=== PATIENT | female | born 1945 | race Caucasian/White ===

== ENCOUNTER → 2017-07-14 | Outpatient (CLI) | payer MEDICARE ==
[~2017-07-14] MED LIST: ADVAIR 250/501 EA INH; ALLEGRA60 M1 PO; AQUASOL E PO; ASPIRIN81 M1 PO; ASTELIN NASAL S30 ML NAS; AUGMENTIN 875 M1 TAB PO; B12,B-12,B 12500 MCG PO; BACTRIM DS 8001 TAB PO; BIAXIN500 MG PO; CIPRO500 MG PO; CITALOPRAM20 MG PO; CLARITIN10 MG PO; COMBIVENT1 ARO IH; DEXILANT60 MG PO; DOXYCYCLINE100 M3 PO; EFFEXOR XR75 MG PO; FAMILY PHARMAC0.4 MG PO; FISH OIL; FISH OIL500 MG; FOLIC ACID; GLUCOSAMINE & C1 CA2 PO; LEVOFLOXACIN500 MG PO; LISINOPRIL10 MG PO; MEDROL DOSEPAK4 MG PO; METFORMIN500 MG PO; MOTRIN600 MG PO; MUCINEX600 MG PO; MULTIVITAMIN FO1 CAP PO; NICOTINE TRANSD1 TDM TD; PREDNICOT20 MG PO; PREDNISONE1 MG PO; PREDNISONE10 MG PO; PROAIR HFA8.5 GM INH; ROBITUSSIN AC 110 ML PO; SEPTRA DS 800 M1 TAB PO; VIT B 12; VIT D; VITAMIN D2000 IU PO; ZANTAC150 MG PO; [UNRECOGNIZED DRUG - OTHER] PO
== END | disposition home or self-care (01) ==
LOC: RESCLI 09:38
DX: S91.052A Open bite, left ankle, initial encounter (principal); E11.9 Type 2 diabetes mellitus without complications; K21.9 Gastro-esophageal reflux disease without esophagitis; I10 Essential (primary) hypertension; J44.9 Chronic obstructive pulmonary disease, unspecified; M19.90 Unspecified osteoarthritis, unspecified site; W55.01XA Bitten by cat, initial encounter; Y93.89 Activity, other specified; Y92.89 Other specified places as the place of occurrence of the external cause; Y99.8 Other external cause status

== ENCOUNTER → 2017-10-14 | Outpatient (CLI) | payer MEDICARE ==
[2017-10-14 09:42] LABS: BASO # 0.1 10*3/uL (0.0-0.1); BASO % 0.9 % (0.0-1.0); EOS # 0.2 10*3/uL (0.0-0.4); EOS % 4.1 % (1.0-4.0); HEMATOCRIT 52.8 % (37.0-47.0); HEMOGLOBIN 17.6 g/dl (12.0-16.0); LYMPH # 1.7 10*3/uL (1.3-4.4); LYMPH % 31.5 % (27.0-41.0); MEAN CELL VOLUME 101.9 fl (81.0-99.0); MEAN CORPUSCULAR HGB CONC 33.3 g/dl (33.0-37.0); MEAN PLATELET VOLUME 8.6 fl (9.6-12.3); MONO # 0.7 10*3/uL (0.1-1.0); MONO % 12.6 % (3.0-9.0); NEUT # 2.7 10*3/uL (2.3-7.9); NEUT % 50.7 % (47.0-73.0); PLATELET COUNT AUTOMATED 281 10*3/uL (130-400); RED BLOOD COUNT 5.18 10*6/uL (4.10-5.10); RED CELL DISTRI WIDTH 12.2 % (0-14.5); WHITE BLOOD COUNT 5.3 10*3/uL (4.8-10.8)
[2017-10-14 10:14] LABS: ALBUMIN 3.2 gm/dl (3.1-4.5); ALKALINE PHOSPHATASE 96 U/L (45-117); BILIRUBIN, DIRECT 0.2 mg/dL (0.0-0.2); BUN 7 mg/dl (7-24); CHLORIDE 104 mmol/L (98-107); CHOLESTEROL 179 mg/dL (<200); HDL CHOLESTEROL 60 mg/dl (40-60); LDL CHOLESTEROL 100 mg/dL (9-159); PHOSPHOROUS 3.9 mg/dL (2.5-4.9); POTASSIUM 4.4 mmol/L (3.5-5.1); SGOT/AST 16 IU/L (3-35); SGPT/ALT 20 U/L (12-78); SODIUM 140 mmol/L (136-145); TOTAL PROTEIN 6.7 gm/dL (6.4-8.2); TRIGLYCERIDES 93 mg/dl (<150); VLDL CHOLESTEROL 19 mg/dL (6-40)
== END | disposition home or self-care (01) ==
LOC: LAB 09:22
PROVIDERS: Internal Medicine
DX: E11.9 Type 2 diabetes mellitus without complications (principal); I10 Essential (primary) hypertension; D51.9 Vitamin B12 deficiency anemia, unspecified

== ENCOUNTER → 2017-12-31 | Outpatient (CLI) | payer MEDICARE ==
[~2017-12-31] MED LIST changes: +AUGMENTIN 875-875 MG PO; +NICODERM CQ1 EAC2 T; +Vitamin D PO
== END | disposition home or self-care (01) ==
LOC: US 12:05
DX: I65.23 Occlusion and stenosis of bilateral carotid arteries (principal)

== ENCOUNTER 2018-01-01 09:40 | Inpatient (IN) | payer MEDICARE ==
[~2018-01-01] VITALS: Ht 160 cm; Wt 63.6 kg
[~2018-01-01 09:40] MED LIST changes: -AUGMENTIN 875-875 MG PO; -NICODERM CQ1 EAC2 T; -Vitamin D PO
[2018-01-01 10:31] VITALS: BP 123/64
[2018-01-01 11:14] LABS: BASO # 0.1 10*3/uL (0.0-0.1); BASO % 0.6 % (0.0-1.0); EOS # 0.1 10*3/uL (0.0-0.4); EOS % 1.5 % (1.0-4.0); HEMATOCRIT 46.4 % (37.0-47.0); HEMOGLOBIN 15.8 g/dl (12.0-16.0); LYMPH # 1.6 10*3/uL (1.3-4.4); LYMPH % 17.5 % (27.0-41.0); MEAN CELL VOLUME 97.1 fl (81.0-99.0); MEAN CORPUSCULAR HGB 33.1 pg (27.0-31.0); MEAN CORPUSCULAR HGB CONC 34.1 g/dl (33.0-37.0); MEAN PLATELET VOLUME 8.8 fl (9.6-12.3); MONO # 0.8 10*3/uL (0.1-1.0); MONO % 9.2 % (3.0-9.0); NEUT # 6.3 10*3/uL (2.3-7.9); NEUT % 70.9 % (47.0-73.0); PLATELET COUNT AUTOMATED 297 10*3/uL (130-400); RED BLOOD COUNT 4.78 10*6/uL (4.10-5.10); RED CELL DISTRI WIDTH 14.6 % (0-14.5); WHITE BLOOD COUNT 8.9 10*3/uL (4.8-10.8)
[2018-01-01 11:30] LABS: ALBUMIN 3.3 gm/dl (3.1-4.5); ALKALINE PHOSPHATASE 114 U/L (45-117); BUN 8 mg/dl (7-24); CHLORIDE 104 mmol/L (98-107); CREATININE 0.78 mg/dL (0.55-1.02); POTASSIUM 4.1 mmol/L (3.5-5.1); SGOT/AST 15 IU/L (3-35); SGPT/ALT 17 U/L (12-78); SODIUM 139 mmol/L (136-145); TOTAL PROTEIN 6.8 gm/dL (6.4-8.2)
[2018-01-01 12:38] VITALS: BP 134/78
[2018-01-01 16:00] VITALS: BP 117/55
[2018-01-01 20:00] VITALS: BP 140/71
[2018-01-01 23:57] VITALS: BP 128/70
[2018-01-02 06:22] LABS: ACT PARTIAL THROMBO TIME 25.2 SECONDS (20.8-31.5)
[2018-01-02 06:25] LABS: ALBUMIN 2.8 gm/dl (3.1-4.5); BUN 5 mg/dl (7-24); CHLORIDE 105 mmol/L (98-107); CHOLESTEROL 115 mg/dL (<200); CREATININE 0.64 mg/dL (0.55-1.02); PHOSPHOROUS 3.1 mg/dL (2.5-4.9); SGOT/AST 12 IU/L (3-35); SGPT/ALT 14 U/L (12-78); SODIUM 142 mmol/L (136-145); TRIGLYCERIDES 42 mg/dl (<150); VLDL CHOLESTEROL 8 mg/dL (6-40)
[2018-01-02 06:28] LABS: BASO % 0.4 % (0.0-1.0); EOS # 0.3 10*3/uL (0.0-0.4); EOS % 3.6 % (1.0-4.0); HEMATOCRIT 45.3 % (37.0-47.0); HEMOGLOBIN 15.3 g/dl (12.0-16.0); LYMPH # 1.8 10*3/uL (1.3-4.4); LYMPH % 22.6 % (27.0-41.0); MEAN CORPUSCULAR HGB 33.8 pg (27.0-31.0); MEAN CORPUSCULAR HGB CONC 33.8 g/dl (33.0-37.0); MEAN PLATELET VOLUME 8.9 fl (9.6-12.3); MONO # 0.6 10*3/uL (0.1-1.0); MONO % 7.8 % (3.0-9.0); NEUT # 5.1 10*3/uL (2.3-7.9); NEUT % 65.3 % (47.0-73.0); PLATELET COUNT AUTOMATED 299 10*3/uL (130-400); RED BLOOD COUNT 4.53 10*6/uL (4.10-5.10); RED CELL DISTRI WIDTH 14.8 % (0-14.5); WHITE BLOOD COUNT 7.8 10*3/uL (4.8-10.8)
[2018-01-02 06:33] LABS: ALKALINE PHOSPHATASE 97 U/L (45-117); FREE T4 0.99 ng/dl (0.76-1.46); HDL CHOLESTEROL 72 mg/dl (40-60); LDL CHOLESTEROL 35 mg/dL (9-159)
[2018-01-02 07:52] LABS: VITAMIN D, 25-HYDROXY 8.7 ng/mL (30-100)
[2018-01-02 08:00] VITALS: BP 98/40
[2018-01-02 12:00] VITALS: BP 135/87
[2018-01-02 16:00] VITALS: BP 145/63
[2018-01-02 20:00] VITALS: BP 124/64
[2018-01-02 23:57] VITALS: BP 118/65
[2018-01-03 08:00] VITALS: BP 136/76
[2018-01-03] MEDS ORDERED: Vitamin D PO (08:16)
[2018-01-03] MEDS ORDERED: AUGMENTIN 875-875 MG PO (09:26)
[2018-01-03] MEDS ORDERED: NICODERM CQ1 EAC2 T (09:26)
== END 2018-01-03 10:47 | disposition home or self-care (01) | DRG 603 ==
LOC: ED 09:40 → EDHOLD 11:11 → 4E 11:26
PROVIDERS: Emergency Medicine; Internal Medicine
DX: L03.113 Cellulitis of right upper limb (principal); E11.628 Type 2 diabetes mellitus with other skin complications; J44.9 Chronic obstructive pulmonary disease, unspecified; E80.6 Other disorders of bilirubin metabolism; I10 Essential (primary) hypertension; F17.200 Nicotine dependence, unspecified, uncomplicated; Z96.649 Presence of unspecified artificial hip joint; E55.9 Vitamin D deficiency, unspecified; H91.93 Unspecified hearing loss, bilateral; Z78.9 Other specified health status; W55.01XA Bitten by cat, initial encounter; Z79.82 Long term (current) use of aspirin; Z71.6 Tobacco abuse counseling; Y93.89 Activity, other specified; Y92.098 Other place in other non-institutional residence as the place of occurrence of the external cause; Y99.8 Other external cause status; Z79.84 Long term (current) use of oral hypoglycemic drugs

== ENCOUNTER → 2018-01-05 | Outpatient (CLI) | payer MEDICARE ==
[~2018-01-05] MED LIST changes: +AUGMENTIN 875-875 MG PO; +NICODERM CQ1 EAC2 T; +Vitamin D PO
== END | disposition home or self-care (01) ==
LOC: RESCLI 09:09
DX: J44.9 Chronic obstructive pulmonary disease, unspecified (principal); R09.02 Hypoxemia; R06.02 Shortness of breath; E11.9 Type 2 diabetes mellitus without complications; I10 Essential (primary) hypertension; F33.9 Major depressive disorder, recurrent, unspecified; F17.200 Nicotine dependence, unspecified, uncomplicated; Z96.641 Presence of right artificial hip joint

== ENCOUNTER → 2018-01-29 | Outpatient (CLI) | payer MEDICARE ==
--- NOTE | ~2018-01-29 | PF ---
[place], [place] PULMONARY FUNCTION TEST NAME: DON PEREZ UNIT #: [id number] ROOM: DOCTOR: KESHA DOMINGUEZ MD,FLORENCIO BIRTHDATE: [birth year] DOS: 01/29/2018 TESTING ORDERED BY: Mckenzie Gann DO HISTORY: Recorded a 72-year-old female, height of 63 inches, weight of 139 pounds. The patient was known with past history of COPD and chronic respiratory failure. The patient was noted with active tobacco use, 2 packs of cigarettes per day for the past 53 years. The symptoms rather reported as a productive cough. SPIROMETRY: The FVC was recorded 2 liters as 70% predicted value, mildly decreased. The FEV1 were recorded 1.21 liters, 57% predicted value, moderate to severely decreased with 17% partial improvement noted post-bronchodilator. The ratio of FEV1/FVC postbronchodilator was noted as 65%. LUNG VOLUME: Thoracic gas volume 125%, residual volume 130%, total lung capacity 100%. RV/TLC ratio 131%, mildly increased. The lung volume was suggestive of mild air trapping. The patient's lung diffusion recorded 48% without correction of carbon monoxide hemoglobin value. The patient's abnormal airway resistance and passive conductance noted, partial improvement post-bronchodilator test. FINAL IMPRESSION: The test was suggestive of evidence of moderate COPD as well as bronchial asthma combination. FLORENCIO REBOLLEDO MD CM:PFREPORT:PULMONARY FUNCTION TEST 1251 0055 FLORENCIO DOMINGUEZ MD
== END | disposition home or self-care (01) ==
LOC: CP 10:31
DX: J44.9 Chronic obstructive pulmonary disease, unspecified (principal); Z99.81 Dependence on supplemental oxygen

== ENCOUNTER 2018-03-20 13:09 | Inpatient (IN) | payer MEDICARE ==
[~2018-03-20] VITALS: Ht 157.4 cm; Wt 58.8 kg
[2018-03-20 13:12] VITALS: BP 116/80
[2018-03-20 13:33] LABS: BASO % 0.5 % (0.0-1.0); EOS # 0.1 10*3/uL (0.0-0.4); EOS % 1.5 % (1.0-4.0); HEMATOCRIT 46.3 % (37.0-47.0); HEMOGLOBIN 15.3 g/dl (12.0-16.0); LYMPH # 1.1 10*3/uL (1.3-4.4); LYMPH % 15.4 % (27.0-41.0); MEAN CELL VOLUME 99.6 fl (81.0-99.0); MEAN CORPUSCULAR HGB 32.9 pg (27.0-31.0); MEAN PLATELET VOLUME 8.9 fl (9.6-12.3); MONO # 0.9 10*3/uL (0.1-1.0); MONO % 12.9 % (3.0-9.0); NEUT # 5.1 10*3/uL (2.3-7.9); NEUT % 69.3 % (47.0-73.0); PLATELET COUNT AUTOMATED 219 10*3/uL (130-400); RED BLOOD COUNT 4.65 10*6/uL (4.10-5.10); RED CELL DISTRI WIDTH 15.5 % (0-14.5); WHITE BLOOD COUNT 7.3 10*3/uL (4.8-10.8)
[2018-03-20 13:54] LABS: ALKALINE PHOSPHATASE 129 U/L (45-117); BUN 7 mg/dl (7-24); CHLORIDE 103 mmol/L (98-107); CREATININE 0.57 mg/dL (0.55-1.02); POTASSIUM 4.1 mmol/L (3.5-5.1); SGOT/AST 12 IU/L (3-35); SGPT/ALT 15 U/L (12-78); SODIUM 137 mmol/L (136-145); TOTAL PROTEIN 6.6 gm/dL (6.4-8.2)
[2018-03-20 13:56] LABS: TROPONIN I < 0.015 ng/ml (<0.045)
[2018-03-20 14:16] VITALS: BP 125/66
[2018-03-20 15:06] LABS: ACT PARTIAL THROMBO TIME 23.1 SECONDS (20.8-31.5)
[2018-03-20 16:00] VITALS: BP 122/53
[2018-03-20 20:00] VITALS: BP 118/53
[2018-03-21] VITALS: BP 109/85
[2018-03-21 06:54] LABS: BASO % 0.4 % (0.0-1.0); EOS # 0.2 10*3/uL (0.0-0.4); EOS % 2.6 % (1.0-4.0); HEMATOCRIT 42.9 % (37.0-47.0); HEMOGLOBIN 14.2 g/dl (12.0-16.0); LYMPH # 2.9 10*3/uL (1.3-4.4); MEAN CELL VOLUME 100.7 fl (81.0-99.0); MEAN CORPUSCULAR HGB 33.3 pg (27.0-31.0); MEAN CORPUSCULAR HGB CONC 33.1 g/dl (33.0-37.0); MEAN PLATELET VOLUME 9.2 fl (9.6-12.3); MONO # 1.2 10*3/uL (0.1-1.0); MONO % 14.3 % (3.0-9.0); NEUT # 4.1 10*3/uL (2.3-7.9); NEUT % 48.2 % (47.0-73.0); PLATELET COUNT AUTOMATED 210 10*3/uL (130-400); RED BLOOD COUNT 4.26 10*6/uL (4.10-5.10); RED CELL DISTRI WIDTH 15.4 % (0-14.5); WHITE BLOOD COUNT 8.6 10*3/uL (4.8-10.8)
[2018-03-21 07:08] LABS: BUN 9 mg/dl (7-24); CHLORIDE 104 mmol/L (98-107); CHOLESTEROL 83 mg/dL (<200); CREATININE 0.54 mg/dL (0.55-1.02); HDL CHOLESTEROL 40 mg/dl (40-60); LDL CHOLESTEROL 34 mg/dL (9-159); PHOSPHOROUS 3.3 mg/dL (2.5-4.9); POTASSIUM 3.6 mmol/L (3.5-5.1); SODIUM 141 mmol/L (136-145); TRIGLYCERIDES 47 mg/dl (<150); VLDL CHOLESTEROL 9 mg/dL (6-40)
[2018-03-21 07:16] LABS: FREE T4 1.15 ng/dl (0.76-1.46)
[2018-03-21 08:00] VITALS: BP 126/59
[2018-03-21 09:00] LABS: VITAMIN D, 25-HYDROXY 45.5 ng/mL (30-100)
[2018-03-21 12:00] VITALS: BP 100/52
[2018-03-21 16:00] VITALS: BP 102/49
[2018-03-21 20:00] VITALS: BP 96/46
[2018-03-22] VITALS: BP 101/64
[2018-03-22 06:46] LABS: BASO % 0.4 % (0.0-1.0); EOS # 0.3 10*3/uL (0.0-0.4); EOS % 3.9 % (1.0-4.0); HEMOGLOBIN 13.2 g/dl (12.0-16.0); LYMPH # 2.4 10*3/uL (1.3-4.4); LYMPH % 32.4 % (27.0-41.0); MEAN CELL VOLUME 100.8 fl (81.0-99.0); MEAN CORPUSCULAR HGB 33.2 pg (27.0-31.0); MEAN PLATELET VOLUME 9.3 fl (9.6-12.3); MONO # 1.1 10*3/uL (0.1-1.0); MONO % 14.1 % (3.0-9.0); NEUT # 3.7 10*3/uL (2.3-7.9); NEUT % 48.8 % (47.0-73.0); PLATELET COUNT AUTOMATED 230 10*3/uL (130-400); RED BLOOD COUNT 3.97 10*6/uL (4.10-5.10); RED CELL DISTRI WIDTH 15.6 % (0-14.5); WHITE BLOOD COUNT 7.5 10*3/uL (4.8-10.8)
[2018-03-22 06:49] LABS: ALBUMIN 2.4 gm/dl (3.1-4.5); BUN 14 mg/dl (7-24); CHLORIDE 102 mmol/L (98-107); CREATININE 0.61 mg/dL (0.55-1.02); POTASSIUM 3.6 mmol/L (3.5-5.1); SGOT/AST 10 IU/L (3-35); SGPT/ALT 12 U/L (12-78); SODIUM 139 mmol/L (136-145); TOTAL PROTEIN 5.8 gm/dL (6.4-8.2)
[2018-03-22 06:50] LABS: ALKALINE PHOSPHATASE 95 U/L (45-117)
[2018-03-22 08:00] VITALS: BP 108/62; BP 91/34
[2018-03-22 12:00] VITALS: BP 96/47
[2018-03-22 16:00] VITALS: BP 91/50
[2018-03-22 20:00] VITALS: BP 91/45
[2018-03-23] VITALS: BP 111/50
[2018-03-23 08:00] VITALS: BP 102/63
[2018-03-23] MEDS ORDERED: XARE15TA PO (10:35)
[2018-03-23] MEDS ORDERED: XARELTO20 M1 PO (10:35)
[2018-03-24] MEDS ORDERED: ASPIRIN81 M1 PO (09:17)
== END 2018-03-23 12:10 | disposition home or self-care (01) | DRG 299 ==
LOC: ED 13:09 → EDHOLD 14:58 → 4E 14:58
PROVIDERS: Internal Medicine; Student in an Organized Health Care Education/Training Program
DX: I82.431 Acute embolism and thrombosis of right popliteal vein (principal); I26.99 Other pulmonary embolism without acute cor pulmonale; E44.0 Moderate protein-calorie malnutrition; E11.8 Type 2 diabetes mellitus with unspecified complications; I82.441 Acute embolism and thrombosis of right tibial vein; J44.9 Chronic obstructive pulmonary disease, unspecified; R26.2 Difficulty in walking, not elsewhere classified; Z66 Do not resuscitate; Z51.5 Encounter for palliative care; F17.200 Nicotine dependence, unspecified, uncomplicated; I10 Essential (primary) hypertension; H91.90 Unspecified hearing loss, unspecified ear; Z96.641 Presence of right artificial hip joint; E55.9 Vitamin D deficiency, unspecified; Z79.01 Long term (current) use of anticoagulants; Z79.899 Other long term (current) drug therapy; Z99.81 Dependence on supplemental oxygen; Z79.84 Long term (current) use of oral hypoglycemic drugs; Z79.82 Long term (current) use of aspirin; Z72.89 Other problems related to lifestyle; Z68.23 Body mass index [BMI] 23.0-23.9, adult

== ENCOUNTER 2018-03-24 06:47 | Inpatient (IN) | payer MEDICARE ==
[~2018-03-24] VITALS: Ht 160 cm; Wt 60.5 kg
--- NOTE | ~2018-03-24 | CON ---
[place], [place] REPORT OF CONSULTATION NAME: DON PEREZ UNIT #: [id number] ROOM: 524 DOCTOR: FLORENCIO XIONG MD BIRTHDATE: [birth year] DOS: 03/25/2018 REASON FOR CONSULTATION: The consultation done for assessment of current acute hypoxic exacerbation with increased respiratory symptom. HISTORY OF PRESENT ILLNESS: This is a 72-year-old white female patient, who has been admitted to the hospital just recently in 03/2018. The patient was hospitalized on 03/20/2018 and discharged home on 03/23/2018. The patient was noted to have bilateral pulmonary embolism. The patient has deep venous thrombosis involving the right lower extremity. Discharged home on Xarelto for this patient to loading dose of 50 mg b.i.d. The patient has been taking the medication. She developed acute significant severe shortness of breath that occurred for this patient and came back to the hospital on 03/24/2018. The patient also noted symptoms of chest pain with that as well, which she was described in retrosternal area, radiating to the right shoulder. Shortness of breath was noted. She has been noted with mild cough and the patient had some wheezing as well. She has noted resolution of the chest pain at the present time. Denies symptoms of hemoptysis. Denies symptoms of nausea or vomiting. The patient came into the Emergency Room, she was noted with acute hypoxic respiratory failure, pulse ox saturation 80% recorded. REVIEW OF SYSTEMS: CONSTITUTIONAL: She does complain of some fatigue and tiredness. Denies symptoms of fever or chills. EYES: Denies any burning, redness, or tenderness. EARS, NOSE, THROAT SYMPTOMS: Denies sore throat, hoarseness, otalgia, or postnasal drainage. CARDIOVASCULAR: Denies angina pain, edema, and pain of the lower extremities. GASTROINTESTINAL SYMPTOMS: Denies dysphagia, nausea, vomiting, diarrhea, abdominal pain, hematemesis, melena, or hematochezia. GENITOURINARY SYMPTOMS: No dysuria, suprapubic pain, or hematuria. MUSCULOSKELETAL SYMPTOMS: No acute joint pain, redness, or tenderness. SKIN: Denies abnormal lesions or rashes. CENTRAL NERVOUS SYSTEM: No dizziness, headache, diplopia, or syncopal episodes. Remaining systems were reviewed, they were noted all negative. PAST MEDICAL HISTORY: 1. Known with history of chronic obstructive pulmonary disease. 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 3. Acute pulmonary embolism, which was diagnosed with the patient on 03/21/2018. The patient bilateral nonsaddle pulmonary emboli. The patient diagnosed on 03/20/2018. 4. Occlusive thrombus, lower extremity noted involving the right popliteal and tibial veins. 5. Hearing loss for the patient was known, which was chronic. The patient is able to do excellent job of lip reading. 6. History of type 2 diabetes mellitus. 7. Vitamin D deficiency. [place], [place] REPORT OF CONSULTATION NAME: DON PEREZ UNIT #: [id number] ROOM: 524 DOCTOR: KESHA DOMINGUEZ MD,FLORENCIO BIRTHDATE: [birth year] PAST SURGICAL HISTORY: Noted right total hip arthroplasty in the past. SOCIAL HISTORY: The patient stated that she is single, not , does not have any children. Tobacco use noted since early teens, 2 packs of cigarettes per day, which were later on decreased 1 pack of cigarettes per day, actively smoking cigarettes. FAMILY HISTORY: The patient was adopted. The history about parents was unknown. CURRENT MEDICATIONS: Administered were noted use of metformin, Protonix, nicotine replacement patches, Tylenol, DuoNeb, aspirin, vitamin D, Xarelto 15 mg b.i.d., citalopram and lisinopril. The patient is also using DuoNeb for the patient as q. 4 hours while awake. DRUG ALLERGIES HISTORY: Noted to no known drug allergies. PHYSICAL EXAMINATION: GENERAL: A 72-year-old female patient, who has been currently noted to be awake and alert for this patient, resting comfortably on the bed. The patient's height was recorded by the nursing staff on current admission. Height for the patient was noted as 5 feet 3 inches, weight of 133 pounds, BMI 23.6. VITAL SIGNS: Shows a normal temperature, respiratory rate 18-20, heart rate 65-73, blood pressure 139/73 to 113/74. Pulse oxygen saturation of the patient noted as 80% saturation on admission and currently on room air at rest was 92% saturation. HEENT: Examination shows head was atraumatic. Eyes nonicterus. NECK: Supple. CARDIOVASCULAR SYSTEM: S1, S2 is audible. LUNGS: The patient was noted without any wheezing or crackles. Breaths are noted mildly decreased bilaterally. ABDOMEN: Soft, nontender. Bowel sounds present. EXTREMITIES: The patient was noted without any acute edema, clubbing or cyanosis at this time. SKIN: No lesions or rashes. MUSCULOSKELETAL SYMPTOMS: Noted without any acute deformities. CENTRAL NERVOUS SYSTEM: Cranial nerves were noted 2-12 intact. No focal deficit. LABORATORY DATA: Labs on this patient, CMP yesterday in the Emergency Room, the patient noted normal BUN and creatinine. A total bilirubin of 1.4. PT/PTT yesterday noted as normal. CBC yesterday noted normal hemoglobin, hematocrit and platelet count. The chest x-ray of the patient that was done yesterday, 1 view was done for this patient was noted without any acute major pulmonary infiltration. CBC this morning essentially remains normal. CMP this morning noted normal BUN and creatinine. I have reviewed the CT of the chest of patient that was noted with evidence of a nonsaddle pulmonary embolism for the patient, which was involving the right upper lobe pulmonary arterial branches of the patient with the largest embolus. Small embolism for the patient noted in the left lower lobe pulmonary arterial branches as well. Right upper lobe area in the lingula of the patient noted with some increased interstitial marking. [place], [place] REPORT OF CONSULTATION NAME: DON PEREZ UNIT #: [id number] ROOM: 524 DOCTOR[facility] B[facility] [birth year] There was no definitive pulmonary nodules. There was no evidence of any lymphadenopathy. Echocardiogram results were also reviewed. The patient does not show any right-sided pulmonary hypertension. For this patient left ventricle ejection fraction noted as 70% that was normal. The right extremity ultrasound noted occlusive thrombus involving the right popliteal and posterior tibial veins. IMPRESSION: 1. The patient who has been currently admitted to the hospital noted acute respiratory failure resulting from recurrent pulmonary embolus. The patient on anticoagulation with Xarelto. 2. The patient with chronic obstructive pulmonary disease, longstanding tobacco use also noted. This was a clinical assessment. 3. Rule out hypercoagulability as well. Occlusive thrombus of the patient noted in the right tibial vein and the peroneal vein for this patient as well. There was no evidence of pulmonary hypertension at this time or acute right-sided heart dysfunction. The patient noted evidence of hypotension. 4. History of type 2 diabetes mellitus as well. PLAN OF MANAGEMENT: Ultrasound of the lower extremity will be repeated again for the patient to assess the progression of the thrombosis for this patient, which was noted. The ultrasound of the bilateral lower extremity was ordered for the patient, previously was ordered only ultrasound of the right lower extremity. The patient's Xarelto has been discontinued and she will be started on traditional treatment with the Lovenox for the patient 1 mg/kg body weight at 2200 hours once the effect of Xarelto on the patient will be finished. Strong recommendation for prevention for the blood clot for this patient with IVC filter. The patient to reduce the major clot burden. The patient progressing to the heart from the lower extremities. Interventional Radiology consultation and consultation from the buck swamper would be obtained. Titrate oxygen supplementation, maintain pulse ox 92% greater. Usual respiratory medication could be started for the long-term management of COPD and nicotine replacement patches will be ordered. Assessment, management and the recommendation, the patient's further medical management discussed with Medicare primary nurse practitioner, who is taking care of this patient today. FLORENCIO REBOLLEDO MD CM:CONSTR:REPORT OF CONSULTATION 1327 03/25/18 1075 interface
--- NOTE | ~2018-03-24 | PR ---
[place], [place] PROGRESS NOTE NAME: DON PEREZ UNIT #: [id number] ROOM: 524 DOCTOR: KESHA DOMINGUEZ MD,FLORENCIO BIRTHDATE: [birth year] DOS: 03/26/2018 SUBJECTIVE: The patient has been noted comfortable at this time, resting. She has ultrasound of the lower extremities, which shows increased propagation of the clot. She has been ordered the consultation by Dr. Soni for placement of IVC filter because of recurrent pulmonary embolism with appropriate anticoagulation with Xarelto as the patient went home and acute respiratory failure resulting from that. There was no evidence of pneumonia. She had not been reported symptoms of hemoptysis or any chest pain. There was no headache or diplopia. Remaining review of systems were noted normal. PHYSICAL EXAMINATION: VITAL SIGNS: Normal temperature, respiratory rate 18, heart rate 77, blood pressure 160/64, pulse ox saturation on room air was 96% saturation. HEENT: Head was atraumatic. Eye nonicterus. NECK: Supple. CARDIOVASCULAR: S1, S2 is audible. LUNGS: The patient was noted without any wheezing or crackles. ABDOMEN: Soft, nontender. Bowel sounds present. EXTREMITIES: Without any acute edema. SKIN: No lesions or rashes. MUSCULOSKELETAL SYMPTOMS: Without any acute deformities. CENTRAL NERVOUS SYSTEM: Cranial nerves 2-12 intact. No focal deficit. LABORATORY DATA: Ultrasound of the bilateral lower extremity was reviewed, which shows acute deep venous thrombosis of distal superficial femoral, popliteal, peroneal and posterior tibial veins and occlusive in all except in the distal superficial femoral vein. There has been progression into the distal superficial femoral vein since ultrasound 3 days ago. IMPRESSION: 1. The patient with recurrent pulmonary embolism with acute severe hypoxic respiratory failure as well. 2. Acute pulmonary embolism was also noted with the previous use of Xarelto, therapeutic dose. Currently, the patient has been getting subcutaneous Lovenox, therapeutic dose. 3. The patient with history of chronic obstructive pulmonary disease as well. PLAN OF MANAGEMENT: Titrate oxygen supplementation, maintain pulse ox saturation 90% or greater. Continuation of the bronchodilators with oxygen supplementation. Proceed with IVC filter insertion. Continuation of all other supportive plan of therapy, care and management. Usual care. Additional treatment changes to be made based on the progression of the illness. The patient could be started on the oral anticoagulation with Coumadin after the insertion of the IVC filter successfully today. [place], [place] PROGRESS NOTE NAME: DON PEREZ UNIT #: [id number] ROOM: 524 DOCTOR: FLORENCIO XIONG MD BIRTHDATE: [birth year] FLORENCIO REBOLLEDO MD CM:PNNEYDA [id number] [id number] FLORENCIO DOMINGUEZ MD 03/26/18 2307 interface
--- NOTE | ~2018-03-24 | EKG ---
[place], [place] ELECTROCARDIOGRAM REPORT NAME: DON PEREZ UNIT #: [id number] ROOM: 524 DOCTOR: KESHA DOMINGUEZ MD,FLORENCIO BIRTHDATE: [birth year] DOS: 03/25/2018 TIME: 10:03 a.m. Normal sinus rhythm were noted for the patient with short AR interval would be considered borderline. FLORENCIO REBOLLEDO MD CM:EKGRPT:ELECTROCARDIOGRAM REPORT 1800 1803 FLORENCIO DOMINGUEZ MD
--- NOTE | ~2018-03-24 | EKG ---
[place], [place] ELECTROCARDIOGRAM REPORT NAME: DON PEREZ UNIT #: [id number] ROOM: 524 DOCTOR: KESHA DOMINGUEZ MD,FLORENCIO BIRTHDATE: [birth year] DOS: 03/24/2018 TIME: 6:58 a.m. The electrocardiogram shows normal sinus rhythm, 95 beats per minute. No electrocardiographic abnormalities noted. FLORENCIO REBOLLEDO MD CM:EKGRPT:ELECTROCARDIOGRAM REPORT 1759 1806 FLORENCIO DOMINGUEZ MD
--- NOTE | ~2018-03-24 | PR ---
[place], [place] PROGRESS NOTE NAME: DON PEREZ UNIT #: [id number] ROOM: 524 DOCTOR: FLORENCIO XIONG MD BIRTHDATE: [birth year] DOS: 03/27/2018 PULMONARY PROGRESS NOTE SUBJECTIVE: The patient noted comfortable at this time without any acute distress. She has a successful insertion of the IVC filter noted in inferior vena cava yesterday. She has been continued on anticoagulation with the subcutaneous Lovenox. The patient has not been noted symptoms of hematuria, abdominal pain, coughing ____. PHYSICAL EXAMINATION: VITAL SIGNS: Noted as normal temperature, respiratory rate 20, heart rate 78, blood pressure 127/91. Her pulse oxygen saturation on room air 97% saturation recorded. HEENT: No acute change. NECK: Supple. CARDIOVASCULAR: S1, S2 audible. LUNGS: Noted without any wheeze or crackles at the present time. ABDOMEN: Soft, nontender, bowel sounds present. EXTREMITIES: Without any acute edema. IMPRESSION: 1. The patient with successful insertion of IVC filter with propagation of the blood clot in the right lower extremity deep venous thrombosis with the recurrent pulmonary embolism on the appropriate therapy with high dose of Xarelto. 2. Resolving acute respiratory failure secondary to current pulmonary embolism. PLAN OF MANAGEMENT: The IVC filter remains in place. The patient could be started on the Coumadin and could be discharged home since she has been noted hemodynamically stable and stable from respiratory standpoint without any complications. The subcutaneous Lovenox will be continued for the patient as a bridging medication until the INR will be noted therapeutic as an outpatient. Usual care. The assessment and management were discussed with Dr. Rowan to make a discharge planning for the patient. [place], [place] PROGRESS NOTE NAME: DON PEREZ UNIT #: [id number] ROOM: 524 DOCTOR: FLORENCIO XIONG MD BIRTHDATE: [birth year] FLORENCIO REBOLLEDO MD CM:PNTRANS 1354 0015 FLORENCIO DOMINGUEZ MD 03/28/18 0014 interface
--- NOTE | ~2018-03-24 | O ---
[place], [place] OPERATIVE NOTE NAME: DON PEREZ UNIT #: [id number] ROOM: 524 DOCTOR: DONNA MEJÍA [facility],KRISTINE BIRTHDATE: [birth year] DOS: 03/26/2018 INDICATIONS: The patient has bilateral pulmonary emboli and recurrent episodes in spite of the Xarelto anticoagulation, still having it, hence Dr. Rebolledo requested ultrasonic solderer to have the IVC filter placed in. Explained the procedure, complications, morbidity and mortality and unforeseen complications and also whenever Dr. Rebolledo and Dr. Lua advised, hospitalist advised me to remove the filter within 6 months or unusual situation within 1 year for removal of the filter will be able to remove it and I explained the procedure of that and the complications, morbidity and mortality. With local MAC, with maximum protective barrier full prep and drape ____ right common femoral vein accessed. DESCRIPTION OF PROCEDURE: After micro access, with the a micro sheath, 0.035 guidewire and a Cook retrieval filter was used. The sheath was placed with introducer and ____ just taken out and angiogram was performed below the origin of the renal veins and did armando the lower level of the renal vein. The filter was placed and positioned optimally below the origin of the renal veins and deployed optimally and centrally located, no tilt and the hook is in the top in the central location and then the deployer was taken out and sheath was left in and angiogram was performed. Filter is nicely located below the origin of the renal veins centrally located, excellent position and sheath was taken out. Hemostasis well obtained with manual compression. No complication noted. The patient tolerated the procedure well. A cineangiogram was performed and will save that to put in the PACS system and that will be optimal documentation. The patient tolerated well. Hemodynamically stable, asymptomatic. KRISTINE THOMPSON MD CM:OPRECORD:OPERATIVE NOTE [id number] HUMERA LUA DO and FLORENCIO REBOLLEDO [facility] MD KRISTINE THOMPSON MD [facility] 03/26/18 0226 interface
--- NOTE | ~2018-03-24 | EKG ---
[place], [place] ELECTROCARDIOGRAM REPORT NAME: DON PEREZ UNIT #: [id number] ROOM: 524 DOCTOR: KESHA DOMINGUEZ MD,FLORENCIO BIRTHDATE: [birth year] DOS: 03/24/2018 Electrocardiogram done at 1:32 p.m. Normal sinus rhythm noted. Heart rate of 69 beats per minute without any other acute abnormalities. FLORENCIO REBOLLEDO MD CM:EKGRPT:ELECTROCARDIOGRAM REPORT 1800 1810 FLORENCIO DOMINGUEZ MD
[~2018-03-24 06:47] MED LIST changes: +XARE15TA PO; +XARELTO20 M1 PO
[2018-03-24 06:54] VITALS: BP 127/84
[2018-03-24 07:19] LABS: BASO % 0.5 % (0.0-1.0); EOS # 0.4 10*3/uL (0.0-0.4); EOS % 4.8 % (1.0-4.0); LYMPH # 1.1 10*3/uL (1.3-4.4); LYMPH % 12.9 % (27.0-41.0); MEAN CELL VOLUME 103.5 fl (81.0-99.0); MEAN CORPUSCULAR HGB CONC 31.9 g/dl (33.0-37.0); MEAN PLATELET VOLUME 8.5 fl (9.6-12.3); MONO % 11.9 % (3.0-9.0); NEUT # 5.9 10*3/uL (2.3-7.9); NEUT % 69.4 % (47.0-73.0); PLATELET COUNT AUTOMATED 305 10*3/uL (130-400); RED BLOOD COUNT 4.54 10*6/uL (4.10-5.10); RED CELL DISTRI WIDTH 15.9 % (0-14.5); WHITE BLOOD COUNT 8.5 10*3/uL (4.8-10.8)
[2018-03-24 07:24] VITALS: BP 118/80
[2018-03-24 07:27] LABS: ACT PARTIAL THROMBO TIME 32.2 SECONDS (20.8-31.5); INTERNATIONAL NORM RATIO 1.1 (2.0-3.5)
[2018-03-24 07:35] LABS: ALBUMIN 3.2 gm/dl (3.1-4.5); ALKALINE PHOSPHATASE 98 U/L (45-117); BUN 11 mg/dl (7-24); CHLORIDE 103 mmol/L (98-107); CREATININE 0.51 mg/dL (0.55-1.02); POTASSIUM 4.2 mmol/L (3.5-5.1); SGOT/AST 18 IU/L (3-35); SGPT/ALT 18 U/L (12-78); SODIUM 139 mmol/L (136-145); TOTAL PROTEIN 7.2 gm/dL (6.4-8.2)
[2018-03-24 07:38] LABS: TROPONIN I < 0.015 ng/ml (<0.045)
[2018-03-24 09:00] VITALS: BP 114/67
[2018-03-24] MEDS ORDERED: ASPIRIN81 M1 PO (09:17)
[2018-03-24 16:00] VITALS: BP 113/74
[2018-03-24 20:00] VITALS: BP 103/55
[2018-03-25] VITALS: BP 120/73
[2018-03-25 06:24] LABS: BASO % 0.1 % (0.0-1.0); EOS % 0.1 % (1.0-4.0); HEMOGLOBIN 13.3 g/dl (12.0-16.0); LYMPH # 1.3 10*3/uL (1.3-4.4); MEAN CELL VOLUME 100.7 fl (81.0-99.0); MEAN CORPUSCULAR HGB 32.8 pg (27.0-31.0); MEAN CORPUSCULAR HGB CONC 32.5 g/dl (33.0-37.0); MEAN PLATELET VOLUME 8.9 fl (9.6-12.3); MONO % 13.4 % (3.0-9.0); NEUT # 5.1 10*3/uL (2.3-7.9); PLATELET COUNT AUTOMATED 340 10*3/uL (130-400); RED BLOOD COUNT 4.06 10*6/uL (4.10-5.10); RED CELL DISTRI WIDTH 15.4 % (0-14.5); WHITE BLOOD COUNT 7.5 10*3/uL (4.8-10.8)
[2018-03-25 06:39] LABS: HEMATOCRIT 40.9 % (37.0-47.0)
[2018-03-25 06:43] LABS: ALBUMIN 2.6 gm/dl (3.1-4.5); ALKALINE PHOSPHATASE 88 U/L (45-117); BUN 16 mg/dl (7-24); CHLORIDE 107 mmol/L (98-107); CREATININE 0.53 mg/dL (0.55-1.02); PHOSPHOROUS 3.3 mg/dL (2.5-4.9); POTASSIUM 4.2 mmol/L (3.5-5.1); SGOT/AST 19 IU/L (3-35); SGPT/ALT 19 U/L (12-78); SODIUM 139 mmol/L (136-145); TOTAL PROTEIN 6.6 gm/dL (6.4-8.2)
[2018-03-25 08:00] VITALS: BP 125/64
[2018-03-25 12:00] VITALS: BP 139/73
[2018-03-25 16:00] VITALS: BP 108/57
[2018-03-25 20:00] VITALS: BP 109/60
[2018-03-26] VITALS (9 sets, daily range): BP systolic 101–137; BP diastolic 60–69
[2018-03-27] VITALS: BP 106/52
[2018-03-27 06:59] LABS: BASO % 0.6 % (0.0-1.0); EOS # 0.3 10*3/uL (0.0-0.4); EOS % 4.2 % (1.0-4.0); HEMATOCRIT 41.6 % (37.0-47.0); HEMOGLOBIN 13.3 g/dl (12.0-16.0); LYMPH # 2.3 10*3/uL (1.3-4.4); LYMPH % 37.4 % (27.0-41.0); MEAN CORPUSCULAR HGB 32.9 pg (27.0-31.0); MEAN PLATELET VOLUME 8.8 fl (9.6-12.3); MONO # 0.8 10*3/uL (0.1-1.0); MONO % 12.4 % (3.0-9.0); NEUT # 2.8 10*3/uL (2.3-7.9); NEUT % 45.2 % (47.0-73.0); PLATELET COUNT AUTOMATED 428 10*3/uL (130-400); RED BLOOD COUNT 4.04 10*6/uL (4.10-5.10); RED CELL DISTRI WIDTH 15.4 % (0-14.5); WHITE BLOOD COUNT 6.2 10*3/uL (4.8-10.8)
[2018-03-27 07:38] LABS: BUN 15 mg/dl (7-24); CHLORIDE 109 mmol/L (98-107); CREATININE 0.61 mg/dL (0.55-1.02); POTASSIUM 4.4 mmol/L (3.5-5.1); SODIUM 142 mmol/L (136-145)
[2018-03-27 08:00] VITALS: BP 120/68
[2018-03-27 12:00] VITALS: BP 127/91
[2018-03-27] MEDS ORDERED: COUMADIN5 M2 PO (12:32)
[2018-03-27] MEDS ORDERED: Lovenox60 MG/0.6 SC (12:32)
[2018-03-27 15:08] LABS: ANTICARDIOLIPIN AB, IGG, QN <9 GPL U/mL (0-14); ANTICARDIOLIPIN AB, IGM, QN <9 MPL U/mL (0-12); CARDIOLIPIN AB IGA 161836 <9 APL U/mL (0-11)
[2018-03-29 09:04] LABS: LUPUS DRVVT 62.1 sec (0.0-47.0)
[2018-03-29 11:08] LABS: ANTI-THROMBIN III ACTIVITY 94 % (75-135); PROTEIN S, FREE 72 % (57-157); PROTEIN S, TOTAL 84 % (60-150)
[2018-03-30 08:11] LABS: LUPUS REFLEX INTERPRETATION Comment: (.)
== END 2018-03-27 15:27 | disposition home or self-care (01) | DRG 166 ==
LOC: ED 06:47 → 5E 07:59 → EDHOLD 07:59 → 5E 08:21
PROVIDERS: Family Medicine; Internal Medicine Critical Care Medicine; Registered Nurse; Student in an Organized Health Care Education/Training Program
PROC: 06H03DZ Insertion of Intraluminal Device into Inferior Vena Cava, Percutaneous Approach (ICD-10-PCS; principal; 2018-03-26)
DX: I26.99 Other pulmonary embolism without acute cor pulmonale (principal); J96.01 Acute respiratory failure with hypoxia; E44.0 Moderate protein-calorie malnutrition; I82.431 Acute embolism and thrombosis of right popliteal vein; I82.441 Acute embolism and thrombosis of right tibial vein; I82.491 Acute embolism and thrombosis of other specified deep vein of right lower extremity; I82.411 Acute embolism and thrombosis of right femoral vein; F17.210 Nicotine dependence, cigarettes, uncomplicated; H91.90 Unspecified hearing loss, unspecified ear; J44.9 Chronic obstructive pulmonary disease, unspecified; I10 Essential (primary) hypertension; E55.9 Vitamin D deficiency, unspecified; E11.9 Type 2 diabetes mellitus without complications; Z96.641 Presence of right artificial hip joint; Z79.899 Other long term (current) drug therapy; Z79.82 Long term (current) use of aspirin; Z79.84 Long term (current) use of oral hypoglycemic drugs; Z99.81 Dependence on supplemental oxygen; Z71.6 Tobacco abuse counseling; Z68.22 Body mass index [BMI] 22.0-22.9, adult

== ENCOUNTER → 2018-03-29 | Outpatient (CLI) | payer MEDICARE ==
[~2018-03-29] MED LIST changes: +COUMADIN5 M2 PO; +Lovenox60 MG/0.6 SC
[2018-03-29 16:50] LABS: INTERNATIONAL NORM RATIO 1.1 (2.0-3.5)
== END | disposition home or self-care (01) ==
LOC: LAB 16:12
PROVIDERS: Internal Medicine
DX: I26.99 Other pulmonary embolism without acute cor pulmonale (principal)

== ENCOUNTER 2018-04-02 15:13 | Emergency (ER) | payer MEDICARE ==
[~2018-04-02] VITALS: Ht 160 cm; Wt 60.3 kg
[2018-04-02 22:29] VITALS: BP 100/62
== END 2018-04-02 22:29 | disposition short-term general hospital (02) ==
LOC: ED 15:13
DX: K91.841 Postprocedural hemorrhage of a digestive system organ or structure following other procedure (principal); J44.9 Chronic obstructive pulmonary disease, unspecified; E11.9 Type 2 diabetes mellitus without complications; I10 Essential (primary) hypertension; Z79.899 Other long term (current) drug therapy; Z79.84 Long term (current) use of oral hypoglycemic drugs; Z79.82 Long term (current) use of aspirin; Z86.718 Personal history of other venous thrombosis and embolism; Z90.89 Acquired absence of other organs; Z79.01 Long term (current) use of anticoagulants; Z98.890 Other specified postprocedural states

== ENCOUNTER → 2018-04-02 | Outpatient (CLI) | payer MEDICARE ==
[2018-04-02 12:09] LABS: ACT PARTIAL THROMBO TIME 38.3 SECONDS (20.8-31.5); INTERNATIONAL NORM RATIO 3.8 (2.0-3.5)
== END | disposition home or self-care (01) ==
LOC: LAB 10:21
PROVIDERS: Internal Medicine
DX: I82.402 Acute embolism and thrombosis of unspecified deep veins of left lower extremity (principal); Z79.01 Long term (current) use of anticoagulants

== ENCOUNTER → 2018-05-10 | Outpatient (CLI) | payer MEDICARE ==
[2018-05-10 11:44] LABS: ACT PARTIAL THROMBO TIME 43.2 SECONDS (20.8-31.5); INTERNATIONAL NORM RATIO 4.5 (2.0-3.5)
== END | disposition home or self-care (01) ==
LOC: LAB 10:25
PROVIDERS: Internal Medicine
DX: Z51.81 Encounter for therapeutic drug level monitoring (principal); Z79.01 Long term (current) use of anticoagulants

== ENCOUNTER → 2018-06-11 | Outpatient (CLI) | payer MEDICARE ==
[~2018-06-11] MED LIST changes: +B COMPLEX1 EACH PO; +CITALOPRAM10 MG PO; +DULE1ARO INH; +Ipratropium Brom3 ML NEB; +MUCINEX ER600 MG PO
[2018-06-11 15:01] LABS: ACT PARTIAL THROMBO TIME 37.9 SECONDS (20.8-31.5); INTERNATIONAL NORM RATIO 2.8 (2.0-3.5)
== END | disposition home or self-care (01) ==
LOC: LAB 13:32
PROVIDERS: Internal Medicine
DX: Z51.81 Encounter for therapeutic drug level monitoring (principal); Z79.01 Long term (current) use of anticoagulants

== ENCOUNTER 2019-05-07 17:14 | Emergency (ER) | payer MEDICARE, OTHER ==
[~2019-05-07] VITALS: Ht 160 cm; Wt 58.5 kg
[2019-05-07 17:15] VITALS: BP 125/80
== END 2019-05-07 20:02 | disposition home or self-care (01) ==
LOC: ED 17:14
DX: S20.212A Contusion of left front wall of thorax, initial encounter (principal); Z79.899 Other long term (current) drug therapy; Z87.891 Personal history of nicotine dependence; W54.1XXA Struck by dog, initial encounter; Y93.89 Activity, other specified; Y92.89 Other specified places as the place of occurrence of the external cause; Y99.8 Other external cause status

== ENCOUNTER → 2020-09-05 | Outpatient (CLI) | payer MEDICARE ==
[2020-09-05 16:24] LABS: BASO # 0.1 10*3/uL (0.0-0.1); BASO % 0.6 % (0.0-1.0); EOS # 0.1 10*3/uL (0.0-0.4); EOS % 1.8 % (1.0-4.0); HEMATOCRIT 51.3 % (37.0-47.0); LYMPH # 2.6 10*3/uL (1.3-4.4); LYMPH % 33.3 % (27.0-41.0); MEAN CELL VOLUME 98.1 fl (81.0-99.0); MEAN CORPUSCULAR HGB 32.1 pg (27.0-31.0); MEAN CORPUSCULAR HGB CONC 32.7 g/dl (33.0-37.0); MEAN PLATELET VOLUME 8.5 fl (9.6-12.3); MONO # 0.8 10*3/uL (0.1-1.0); MONO % 9.7 % (3.0-9.0); NEUT # 4.3 10*3/uL (2.3-7.9); NEUT % 54.3 % (47.0-73.0); PLATELET COUNT AUTOMATED 679 10*3/uL (130-400); RED BLOOD COUNT 5.23 10*6/uL (4.10-5.10); RED CELL DISTRI WIDTH 13.4 % (0-14.5); WHITE BLOOD COUNT 7.8 10*3/uL (4.8-10.8)
[2020-09-05 16:42] LABS: ALBUMIN 3.4 gm/dl (3.1-4.5); ALKALINE PHOSPHATASE 98 U/L (45-117); BILIRUBIN, DIRECT 0.3 mg/dL (0.0-0.2); BUN 10 mg/dl (7-24); CHLORIDE 105 mmol/L (98-107); CHOLESTEROL 190 mg/dL (<200); CREATININE 0.75 mg/dL (0.55-1.02); HDL CHOLESTEROL 72 mg/dl (40-60); LDL CHOLESTEROL 102 mg/dL (9-159); POTASSIUM 3.9 mmol/L (3.5-5.1); SGOT/AST 17 IU/L (3-35); SGPT/ALT 23 U/L (12-78); SODIUM 140 mmol/L (136-145); TOTAL PROTEIN 7.1 gm/dL (6.4-8.2); TRIGLYCERIDES 82 mg/dl (<150); VLDL CHOLESTEROL 16 mg/dL (6-40)
== END | disposition home or self-care (01) ==
LOC: LAB 16:06
PROVIDERS: ATTEND Internal Medicine
DX: Z13.220 Encounter for screening for lipoid disorders (principal); I48.20 Chronic atrial fibrillation, unspecified; I10 Essential (primary) hypertension; E11.9 Type 2 diabetes mellitus without complications

== ENCOUNTER → 2020-12-21 | Outpatient (CLI) | payer MEDICARE ==
[2020-12-21 13:22] LABS: BASO # 0.1 10*3/uL (0.0-0.1); BASO % 1.4 % (0.0-1.0); EOS # 0.3 10*3/uL (0.0-0.4); EOS % 4.6 % (1.0-4.0); LYMPH # 2.3 10*3/uL (1.3-4.4); LYMPH % 31.8 % (27.0-41.0); MEAN CELL VOLUME 100.4 fl (81.0-99.0); MEAN CORPUSCULAR HGB 32.5 pg (27.0-31.0); MEAN CORPUSCULAR HGB CONC 32.4 g/dl (33.0-37.0); MEAN PLATELET VOLUME 8.5 fl (9.6-12.3); MONO # 0.8 10*3/uL (0.1-1.0); MONO % 10.5 % (3.0-9.0); NEUT # 3.8 10*3/uL (2.3-7.9); NEUT % 51.4 % (47.0-73.0); PLATELET COUNT AUTOMATED 609 10*3/uL (130-400); RED BLOOD COUNT 5.08 10*6/uL (4.10-5.10); RED CELL DISTRI WIDTH 14.1 % (0-14.5); WHITE BLOOD COUNT 7.4 10*3/uL (4.8-10.8)
[2020-12-21 13:42] LABS: ALBUMIN 3.4 gm/dl (3.1-4.5); BILIRUBIN, DIRECT 0.2 mg/dL (0.0-0.2); BUN 9 mg/dl (7-24); CHLORIDE 110 mmol/L (98-107); CHOLESTEROL 160 mg/dL (<200); POTASSIUM 4.3 mmol/L (3.5-5.1); SGOT/AST 15 IU/L (3-35); SGPT/ALT 20 U/L (12-78); SODIUM 142 mmol/L (136-145); TOTAL PROTEIN 6.9 gm/dL (6.4-8.2); TRIGLYCERIDES 127 mg/dl (<150); VLDL CHOLESTEROL 25 mg/dL (6-40)
[2020-12-21 13:48] LABS: ALKALINE PHOSPHATASE 113 U/L (45-117); HDL CHOLESTEROL 56 mg/dl (40-60); LDL CHOLESTEROL 79 mg/dL (9-159)
== END | disposition home or self-care (01) ==
LOC: LAB 12:36
PROVIDERS: ATTEND Internal Medicine
DX: I10 Essential (primary) hypertension (principal); E78.2 Mixed hyperlipidemia; E11.9 Type 2 diabetes mellitus without complications

== ENCOUNTER → 2021-04-11 | Outpatient (CLI) | payer MEDICARE ==
[2021-04-11 15:15] LABS: BASO # 0.1 10*3/uL (0.0-0.1); BASO % 1.3 % (0.0-1.0); EOS # 0.3 10*3/uL (0.0-0.4); EOS % 4.2 % (1.0-4.0); HEMATOCRIT 54.6 % (37.0-47.0); LYMPH # 2.2 10*3/uL (1.3-4.4); LYMPH % 31.9 % (27.0-41.0); MEAN CELL VOLUME 90.7 fl (81.0-99.0); MEAN CORPUSCULAR HGB 29.4 pg (27.0-31.0); MEAN CORPUSCULAR HGB CONC 32.4 g/dl (33.0-37.0); MONO # 0.9 10*3/uL (0.1-1.0); MONO % 12.6 % (3.0-9.0); NEUT # 3.4 10*3/uL (2.3-7.9); NEUT % 49.9 % (47.0-73.0); PLATELET COUNT AUTOMATED 657 10*3/uL (130-400); RED BLOOD COUNT 6.02 10*6/uL (4.10-5.10); WHITE BLOOD COUNT 6.8 10*3/uL (4.8-10.8)
[2021-04-11 15:47] LABS: ALBUMIN 3.3 gm/dl (3.1-4.5); BILIRUBIN, DIRECT 0.3 mg/dL (0.0-0.2); BUN 11 mg/dl (7-24); CHLORIDE 105 mmol/L (98-107); CHOLESTEROL 175 mg/dL (<200); CREATININE 0.71 mg/dL (0.55-1.02); SGOT/AST 13 IU/L (3-35); SGPT/ALT 17 U/L (12-78); SODIUM 139 mmol/L (136-145); TOTAL PROTEIN 7.1 gm/dL (6.4-8.2); TRIGLYCERIDES 94 mg/dl (<150)
[2021-04-11 15:49] LABS: ALKALINE PHOSPHATASE 98 U/L (45-117); LDL CHOLESTEROL 101 mg/dL (9-159)
== END | disposition home or self-care (01) ==
LOC: LAB 14:05
PROVIDERS: ATTEND Internal Medicine
DX: I10 Essential (primary) hypertension (principal); J44.9 Chronic obstructive pulmonary disease, unspecified; E78.2 Mixed hyperlipidemia

== ENCOUNTER → 2021-08-12 | Outpatient (CLI) | payer MEDICARE | END | disposition home or self-care (01) | LOC: MRI 13:00 | PROVIDERS: ATTEND Podiatrist Foot & Ankle Surgery | DX: M79.89 Other specified soft tissue disorders (principal); M84.34 Stress fracture, hand and fingers ==

== ENCOUNTER → 2021-12-16 | Outpatient (CLI) | payer MEDICARE ==
[2021-12-16 16:47] LABS: BASO # 0.1 10*3/uL (0.0-0.1); EOS # 0.3 10*3/uL (0.0-0.4); EOS % 4.3 % (1.0-4.0); HEMATOCRIT 54.3 % (37.0-47.0); LYMPH # 2.5 10*3/uL (1.3-4.4); LYMPH % 34.2 % (27.0-41.0); MEAN CELL VOLUME 92.8 fl (81.0-99.0); MEAN CORPUSCULAR HGB 29.2 pg (27.0-31.0); MEAN CORPUSCULAR HGB CONC 31.5 g/dl (33.0-37.0); MEAN PLATELET VOLUME 8.9 fl (9.6-12.3); MONO # 0.9 10*3/uL (0.1-1.0); MONO % 13.1 % (3.0-9.0); NEUT # 3.4 10*3/uL (2.3-7.9); NEUT % 47.1 % (47.0-73.0); PLATELET COUNT AUTOMATED 610 10*3/uL (130-400); RED BLOOD COUNT 5.85 10*6/uL (4.10-5.10); RED CELL DISTRI WIDTH 14.4 % (0-14.5); WHITE BLOOD COUNT 7.2 10*3/uL (4.8-10.8)
[2021-12-16 17:05] LABS: ALBUMIN 2.9 gm/dl (3.1-4.5); ALKALINE PHOSPHATASE 130 U/L (45-117); BUN 9 mg/dl (7-24); CHLORIDE 109 mmol/L (98-107); CHOLESTEROL 151 mg/dL (<200); CREATININE 0.73 mg/dL (0.55-1.02); LDL CHOLESTEROL 84 mg/dL (9-159); POTASSIUM 3.9 mmol/L (3.5-5.1); SGOT/AST 14 IU/L (3-35); SGPT/ALT 17 U/L (12-78); SODIUM 141 mmol/L (136-145); TOTAL PROTEIN 6.6 gm/dL (6.4-8.2); TRIGLYCERIDES 59 mg/dl (<150)
== END | disposition home or self-care (01) ==
LOC: LAB 05:17
PROVIDERS: ATTEND Internal Medicine
DX: I10 Essential (primary) hypertension (principal); E11.9 Type 2 diabetes mellitus without complications; E78.2 Mixed hyperlipidemia; I48.20 Chronic atrial fibrillation, unspecified

== ENCOUNTER → 2022-05-13 | Outpatient (CLI) | payer MEDICARE ==
[2022-05-13 16:25] LABS: BASO # 0.1 10*3/uL (0.0-0.1); BASO % 1.5 % (0.0-1.0); EOS # 0.2 10*3/uL (0.0-0.4); EOS % 3.2 % (1.0-4.0); HEMATOCRIT 55.4 % (37.0-47.0); LYMPH # 1.9 10*3/uL (1.3-4.4); LYMPH % 26.4 % (27.0-41.0); MEAN CELL VOLUME 88.5 fl (81.0-99.0); MEAN CORPUSCULAR HGB 28.1 pg (27.0-31.0); MEAN CORPUSCULAR HGB CONC 31.8 g/dl (33.0-37.0); MEAN PLATELET VOLUME 8.8 fl (9.6-12.3); MONO # 0.9 10*3/uL (0.1-1.0); MONO % 12.2 % (3.0-9.0); NEUT % 56.4 % (47.0-73.0); PLATELET COUNT AUTOMATED 680 10*3/uL (130-400); RED BLOOD COUNT 6.26 10*6/uL (4.10-5.10); RED CELL DISTRI WIDTH 17.2 % (0-14.5); WHITE BLOOD COUNT 7.2 10*3/uL (4.8-10.8)
[2022-05-13 16:51] LABS: ALKALINE PHOSPHATASE 103 U/L (45-117); BUN 9 mg/dl (7-24); CHLORIDE 107 mmol/L (98-107); CREATININE 0.76 mg/dL (0.55-1.02); POTASSIUM 4.1 mmol/L (3.5-5.1); SGOT/AST 17 IU/L (3-35); SGPT/ALT 16 U/L (12-78); SODIUM 142 mmol/L (136-145); THYROXINE (T4) TOTAL 9.7 ug/dl (4.8-13.9); TOTAL PROTEIN 6.5 gm/dL (6.4-8.2)
== END | disposition home or self-care (01) ==
LOC: LAB 15:57
PROVIDERS: ATTEND Internal Medicine
DX: E11.9 Type 2 diabetes mellitus without complications (principal); I10 Essential (primary) hypertension; I48.21 Permanent atrial fibrillation

== ENCOUNTER → 2022-08-13 | Outpatient (CLI) | payer MEDICARE | END | disposition home or self-care (01) | LOC: MRI 07-28 10:00 | PROVIDERS: ATTEND Specialist | DX: I67.82 Cerebral ischemia (principal); H81.319 Aural vertigo, unspecified ear ==

== ENCOUNTER → 2022-09-29 | Outpatient (CLI) | payer MEDICARE | END | disposition home or self-care (01) | LOC: MRI 07-28 10:00 → US 14:00 | PROVIDERS: ATTEND Specialist | DX: H81.319 Aural vertigo, unspecified ear (principal); I65.23 Occlusion and stenosis of bilateral carotid arteries ==

== ENCOUNTER → 2023-02-10 | Outpatient (CLI) | payer MEDICARE ==
[2023-02-10 15:25] LABS: BASO # 0.1 10*3/uL (0.0-0.1); BASO % 1.5 % (0.0-1.0); EOS # 0.2 10*3/uL (0.0-0.4); EOS % 2.6 % (1.0-4.0); HEMATOCRIT 57.6 % (37.0-47.0); LYMPH % 32.1 % (27.0-41.0); MEAN CELL VOLUME 87.7 fl (81.0-99.0); MEAN CORPUSCULAR HGB 28.3 pg (27.0-31.0); MEAN CORPUSCULAR HGB CONC 32.3 g/dl (33.0-37.0); MEAN PLATELET VOLUME 8.9 fl (9.6-12.3); MONO # 0.8 10*3/uL (0.1-1.0); MONO % 12.6 % (3.0-9.0); NEUT # 3.2 10*3/uL (2.3-7.9); NEUT % 50.9 % (47.0-73.0); PLATELET COUNT AUTOMATED 605 10*3/uL (130-400); RED BLOOD COUNT 6.57 10*6/uL (4.10-5.10); RED CELL DISTRI WIDTH 18.2 % (0-14.5); WHITE BLOOD COUNT 6.2 10*3/uL (4.8-10.8)
[2023-02-10 15:59] LABS: ALKALINE PHOSPHATASE 114 U/L (46-116); BUN 8 mg/dl (9-23); CHLORIDE 103 mmol/L (98-107); CHOLESTEROL 169 mg/dL (<200); LDL CHOLESTEROL 81 mg/dL (9-159); POTASSIUM 4.6 mmol/L (3.4-5.1); SGPT/ALT 10 U/L (10-49); THYROXINE (T4) TOTAL 7.5 ug/dl (4.5-10.9); TRIGLYCERIDES 122 mg/dl (<150)
== END | disposition home or self-care (01) ==
LOC: LAB 15:02
PROVIDERS: ATTEND Internal Medicine
DX: I10 Essential (primary) hypertension (principal); E11.9 Type 2 diabetes mellitus without complications; E78.2 Mixed hyperlipidemia; E53.8 Deficiency of other specified B group vitamins

== ENCOUNTER → 2023-07-22 | Outpatient (CLI) | payer MEDICARE ==
[2023-07-22 17:05] LABS: BASO # 0.1 10*3/uL (0.0-0.1); BASO % 1.3 % (0.0-1.0); EOS # 0.2 10*3/uL (0.0-0.4); EOS % 2.7 % (1.0-4.0); LYMPH # 2.3 10*3/uL (1.3-4.4); MEAN CELL VOLUME 89.6 fl (81.0-99.0); MEAN CORPUSCULAR HGB 29.4 pg (27.0-31.0); MEAN CORPUSCULAR HGB CONC 32.9 g/dl (33.0-37.0); MEAN PLATELET VOLUME 8.9 fl (9.6-12.3); MONO # 0.8 10*3/uL (0.1-1.0); MONO % 11.6 % (3.0-9.0); NEUT # 3.6 10*3/uL (2.3-7.9); NEUT % 51.1 % (47.0-73.0); PLATELET COUNT AUTOMATED 570 10*3/uL (130-400); RED BLOOD COUNT 6.25 10*6/uL (4.10-5.10); RED CELL DISTRI WIDTH 17.7 % (0-14.5)
[2023-07-22 17:30] LABS: ALKALINE PHOSPHATASE 93 U/L (46-116); BUN 10 mg/dl (9-23); CHLORIDE 103 mmol/L (98-107); CHOLESTEROL 159 mg/dL (<200); LDL CHOLESTEROL 80 mg/dL (9-159); POTASSIUM 4.4 mmol/L (3.4-5.1); SGPT/ALT 8 U/L (10-49); TOTAL PROTEIN 6.4 gm/dL (6.0-8.0); TRIGLYCERIDES 99 mg/dl (<150)
== END | disposition home or self-care (01) ==
LOC: LAB 16:44
PROVIDERS: ATTEND Internal Medicine
DX: I10 Essential (primary) hypertension (principal); E78.2 Mixed hyperlipidemia; E11.9 Type 2 diabetes mellitus without complications; E53.8 Deficiency of other specified B group vitamins; G62.9 Polyneuropathy, unspecified

== ENCOUNTER 2023-09-02 10:23 | Emergency (ER) | payer MEDICARE ==
[~2023-09-02] VITALS: Wt 72.1 kg
[~2023-09-02 10:23] MED LIST changes: +ACETAMINOPHEN325 M2 PO; +ATARAX,VISTARIL50 MG PO; +B121000 MCG/1 IM; +BREYNA 160-4.10.3 GM INH; +CALCIUM CARBON200 MG PO; +Coumadin2 MG PO; +HYDROCODONE-AC1 EAC1 PO; +Humalog SQ; +LISINOPRIL5 MG PO; +METFORMIN HYDR500 MG PO; +PAROXETINE HCL20 MG PO; +SODIUM-POTASSI1 EACH PO; +VENTOLIN 02.5 MG/3 M INH; +VITAMIN D350 MCG PO
[2023-09-02 10:36] VITALS: BP 103/52
[2023-09-02] MEDS ORDERED: WARFARIN SOD5 MG PO (10:45)
[2023-09-02 12:21] LABS: HEMATOCRIT 42.9 % (37.0-47.0); MEAN CELL VOLUME 93.3 fl (81.0-99.0); MEAN CORPUSCULAR HGB 30.2 pg (27.0-31.0); MEAN CORPUSCULAR HGB CONC 32.4 g/dl (33.0-37.0); MEAN PLATELET VOLUME 9.1 fl (9.6-12.3); RED CELL DISTRI WIDTH 16.2 % (0-14.5); WHITE BLOOD COUNT 11.8 10*3/uL (4.8-10.8)
[2023-09-02 12:25] LABS: MANUAL DIFF REFLEX YES; PLATELET COUNT AUTOMATED 1105 10*3/uL (130-400)
[2023-09-02 12:32] LABS: ACT PARTIAL THROMBO TIME 53.5 SECONDS (20.0-32.1)
[2023-09-02 12:34] LABS: ATYPICAL LYMPHS 1 % (0-0); BURR CELLS FEW; OVALOCYTES FEW; PLATELET SUFFICIENCY HIGH (NORMAL); POLYCHROMASIA SLIGHT; TOTAL CELLS COUNTED 100 #CELLS
[2023-09-02 12:35] LABS: ROULEAUX SLIGHT
[2023-09-02 12:37] LABS: ALKALINE PHOSPHATASE 123 U/L (46-116); BUN 20 mg/dl (9-23); CHLORIDE 103 mmol/L (98-107); INTERNATIONAL NORM RATIO 5.2 (2.0-3.5); LIPASE 28 U/L (12-53); POTASSIUM 4.7 mmol/L (3.4-5.1); SGPT/ALT 25 U/L (10-49)
== END 2023-09-02 14:49 ==
LOC: ED 10:23
PROVIDERS: Emergency Medicine
DX: I82.403 Acute embolism and thrombosis of unspecified deep veins of lower extremity, bilateral (principal); I10 Essential (primary) hypertension; J44.9 Chronic obstructive pulmonary disease, unspecified; E11.9 Type 2 diabetes mellitus without complications; F32.A Depression, unspecified; M19.90 Unspecified osteoarthritis, unspecified site; Z98.890 Other specified postprocedural states; Z90.89 Acquired absence of other organs; F17.200 Nicotine dependence, unspecified, uncomplicated

== ENCOUNTER 2023-10-18 22:31 | Emergency (ER) | payer MEDICARE ==
[~2023-10-18] VITALS: Ht 160 cm; Wt 69.9 kg
[~2023-10-18 22:31] MED LIST changes: +ALBUTEROL2.5 MG/0.5 INH; +ANTACID PO; +B-COMPLEX1 EACH PO; +DULERA 200 MCG-13 GM INH; +HUMALOG KW200 UNIT/1 SQ; +HYDROXYZINE HCL50 MG PO; +Ipratropium Brom3 ML INH; +Lovenox80 MG/0.8 SC; +METFORMIN XR500 MG PO; +PAROXETINE20 MG PO; +VITAMIN D350 MC2 PO; +WARFARIN SOD5 MG PO; +[UNRECOGNIZED DRUG - OTHER]
[2023-10-19] MEDS ORDERED: TRAMADOL HCL50 MG PO (00:11)
[2023-10-19 01:02] VITALS: BP 157/79
[2023-10-20] MEDS ORDERED: Coumadin2 MG PO (15:22)
[2023-10-20] MEDS ORDERED: Coumadin3 MG PO (22:47)
== END 2023-10-19 00:50 | disposition home or self-care (01) ==
LOC: ED 22:31
DX: M54.50 Low back pain, unspecified (principal); I10 Essential (primary) hypertension; J44.9 Chronic obstructive pulmonary disease, unspecified; E11.9 Type 2 diabetes mellitus without complications; F32.A Depression, unspecified; Z90.89 Acquired absence of other organs; Z98.890 Other specified postprocedural states; F17.200 Nicotine dependence, unspecified, uncomplicated

== ENCOUNTER 2025-04-24 15:59 | Emergency (ER) | payer OTHER ==
[~2025-04-24] VITALS: Ht 162.5 cm; Wt 59.0 kg
[~2025-04-24 15:59] MED LIST changes: +Coumadin3 MG PO; +NATURE'S BLEND100 M2 PO; +TRAMADOL HCL50 MG PO
[2025-04-24 16:23] VITALS: BP 133/54
[2025-04-24 19:24] LABS: BASO # 0.1 10*3/uL (0.0-0.1); BASO % 1.3 % (0.0-1.0); EOS # 0.3 10*3/uL (0.0-0.4); EOS % 3.1 % (1.0-4.0); HEMATOCRIT 46.5 % (37.0-47.0); MEAN CELL VOLUME 75.9 fl (81.0-99.0); MEAN CORPUSCULAR HGB CONC 30.3 g/dl (33.0-37.0); MEAN PLATELET VOLUME 8.4 fl (9.6-12.3); MONO # 0.9 10*3/uL (0.1-1.0); MONO % 9.5 % (3.0-9.0); NEUT # 5.5 10*3/uL (2.3-7.9); NEUT % 56.4 % (47.0-73.0); PLATELET COUNT AUTOMATED 833 10*3/uL (130-400); RED BLOOD COUNT 6.13 10*6/uL (4.10-5.10); RED CELL DISTRI WIDTH 18.6 % (0-14.5); WHITE BLOOD COUNT 9.7 10*3/uL (4.8-10.8)
[2025-04-24 19:36] LABS: ACT PARTIAL THROMBO TIME 40.5 SECONDS (20.0-32.1)
[2025-04-24 19:49] LABS: ALKALINE PHOSPHATASE 113 U/L (46-116); BUN 12 mg/dl (9-23); CHLORIDE 104 mmol/L (98-107); CPK 75 U/L (34-171); POTASSIUM 4.2 mmol/L (3.4-5.1); SGPT/ALT 9 U/L (5-49); TOTAL PROTEIN 7.1 gm/dL (6.0-8.0)
[2025-04-24] MEDS ORDERED: FUROSEMIDE 40 MG/4 ML VIAL IV ONE (21:55)
[2025-04-24] MEDS ORDERED: LASIX20 MG PO (21:58)
[2025-04-24] MEDS ORDERED: FUROSEMIDE 40 MG TAB PO ONE (22:05)
[2025-04-24] MEDS ORDERED: traMADol Hydrochloride 50 MG TAB PO ONE (22:40)
== END 2025-04-24 22:17 | disposition home or self-care (01) ==
LOC: ED 15:59
PROVIDERS: Emergency Medicine
DX: R60.0 Localized edema (principal); M94.0 Chondrocostal junction syndrome [Tietze]; D75.839 Thrombocytosis, unspecified; I10 Essential (primary) hypertension; E11.9 Type 2 diabetes mellitus without complications; J44.9 Chronic obstructive pulmonary disease, unspecified; Z79.899 Other long term (current) drug therapy; Z90.89 Acquired absence of other organs; Z98.890 Other specified postprocedural states

== ENCOUNTER 2025-07-11 15:44 | Emergency (ER) | payer OTHER ==
[~2025-07-11] VITALS: Ht 160 cm; Wt 68.1 kg
[~2025-07-11 15:44] MED LIST changes: +LASIX20 MG PO
[2025-07-11 15:48] VITALS: BP 145/68
[2025-07-11] MEDS ORDERED: SODIUM CHLORIDE 0.9% 1,000 ML IV ONE (15:50)
[2025-07-11 16:47] LABS: MEAN CELL VOLUME 78.1 fl (81.0-99.0); MEAN CORPUSCULAR HGB 23.5 pg (27.0-31.0); MEAN PLATELET VOLUME 8.4 fl (9.6-12.3); NUCLEATED RED BLOOD CELL 0.0 % (0.0-0.0); NUCLEATED RED BLOOD CELL 0.0 10*3/uL (0.0-0.0); RED CELL DISTRI WIDTH 19.3 % (0-14.5)
[2025-07-11 16:52] LABS: PLATELET COUNT AUTOMATED 1125 10*3/uL (130-400)
[2025-07-11 16:54] LABS: MANUAL DIFF REFLEX YES
[2025-07-11 17:03] LABS: ACT PARTIAL THROMBO TIME 59.8 SECONDS (20.0-32.1); BUN 14 mg/dl (9-23)
[2025-07-11 17:10] LABS: BASOPHILS 1 % (0-1)
[2025-07-11 17:12] LABS: PLATELET SUFFICIENCY HIGH (NORMAL)
== END 2025-07-11 19:50 | disposition short-term general hospital (02) ==
LOC: ED 15:44
PROVIDERS: Emergency Medicine
DX: I77.1 Stricture of artery (principal); I10 Essential (primary) hypertension; J44.9 Chronic obstructive pulmonary disease, unspecified; E11.9 Type 2 diabetes mellitus without complications; F32.A Depression, unspecified; M19.90 Unspecified osteoarthritis, unspecified site; F17.210 Nicotine dependence, cigarettes, uncomplicated; Z90.89 Acquired absence of other organs

== ENCOUNTER 2025-07-18 15:57 | Inpatient (IN) | payer MEDICARE ==
[~2025-07-18] VITALS: Ht 160 cm; Wt 70.0 kg
[2025-07-18 16:08] VITALS: BP 113/47
[2025-07-18 17:00] LABS: MEAN CELL VOLUME 80.2 fl (81.0-99.0); MEAN CORPUSCULAR HGB 23.6 pg (27.0-31.0); MEAN PLATELET VOLUME 8.6 fl (9.6-12.3); NUCLEATED RED BLOOD CELL 0.0 % (0.0-0.0); NUCLEATED RED BLOOD CELL 0.0 10*3/uL (0.0-0.0); PLATELET COUNT AUTOMATED 678 10*3/uL (130-400); RED CELL DISTRI WIDTH 19.8 % (0-14.5)
[2025-07-18 17:01] LABS: MANUAL DIFF REFLEX YES
[2025-07-18 17:22] LABS: PLATELET SUFFICIENCY HIGH (NORMAL)
[2025-07-18 17:23] LABS: BUN 18 mg/dl (9-23); SGPT/ALT 12 U/L (5-49)
[2025-07-18] MEDS ORDERED: SODIUM CHLORIDE 0.9% 1,000 ML IV ONE (17:50)
[2025-07-18] MEDS ORDERED: Ondansetron Hydrochloride 4 MG/2 ML VIAL IV PRN (18:10)
[2025-07-18] MEDS ORDERED: ACETAMINOPHEN 325 MG TAB PO PRN (18:10)
[2025-07-18] MEDS ORDERED: DEXTROSE 50% 25 GM/50 ML VIAL IV PRN (18:10)
[2025-07-18] MEDS ORDERED: SODIUM CHLORIDE 0.9% 500 ML IV ONE ×2 (19:10→20:10)
[2025-07-18] MEDS ORDERED: GABAPENTIN100 M2 PO (19:44)
[2025-07-18] MEDS ORDERED: SERTRALINE HYDR25 MG PO (19:48)
[2025-07-18] MEDS ORDERED: BREYNA 160-4.10.3 GM IH (19:49)
[2025-07-18] MEDS ORDERED: APAP325 MG PO (19:50)
[2025-07-18 19:51] VITALS: BP 134/49
[2025-07-18] MEDS ORDERED: WARFARIN SODIUM 2 MG TAB PO SCH (20:00)
[2025-07-18 21:12] VITALS: BP 132/59
[2025-07-18] MEDS ORDERED: INSULIN LISPRO 1 UNIT/0.01 ML SQ SCH (22:00)
[2025-07-19] VITALS: BP 113/30
[2025-07-19 06:16] LABS: BASO # 0.1 10*3/uL (0.0-0.1); BASO % 1.1 % (0.0-1.0); EOS # 0.4 10*3/uL (0.0-0.4); EOS % 3.5 % (1.0-4.0); MEAN CELL VOLUME 78.8 fl (81.0-99.0); MEAN CORPUSCULAR HGB 23.5 pg (27.0-31.0); MEAN PLATELET VOLUME 9.2 fl (9.6-12.3); MONO # 1.3 10*3/uL (0.1-1.0); MONO % 13.0 % (3.0-9.0); NEUT # 5.4 10*3/uL (2.3-7.9); NEUT % 54.0 % (47.0-73.0); NUCLEATED RED BLOOD CELL 0.0 % (0.0-0.0); NUCLEATED RED BLOOD CELL 0.0 10*3/uL (0.0-0.0); PLATELET COUNT AUTOMATED 627 10*3/uL (130-400); RED CELL DISTRI WIDTH 19.4 % (0-14.5)
[2025-07-19 06:41] LABS: BUN 15 mg/dl (9-23); FREE T4 1.05 ng/dl (0.89-1.76); LDL CHOLESTEROL 92 mg/dL (9-159); SGPT/ALT 7 U/L (5-49)
[2025-07-19] MEDS ORDERED: Albuterol Sulfate 2.5 MG/0.5 ML VIAL NEB PRN (07:00)
[2025-07-19] MEDS ORDERED: BUDESONIDE 0.5 MG AMP NEB SCH (07:06)
[2025-07-19] MEDS ORDERED: Albuterol Sulf/Ipratropium 3 ML VIAL NEB SCH (07:06)
[2025-07-19 08:00] VITALS: BP 115/62
[2025-07-19 08:07] LABS: VITAMIN D, 25-HYDROXY 17.6 ng/mL (30-100)
[2025-07-19] MEDS ORDERED: LISINOPRIL 5 MG TAB PO SCH (10:00)
[2025-07-19 12:00] VITALS: BP 144/50
[2025-07-19 16:00] VITALS: BP 132/59
[2025-07-19] MEDS ORDERED: FOAM BANDAGE HEEL T ONE (18:30)
[2025-07-19 20:00] VITALS: BP 140/58
[2025-07-19] MEDS ORDERED: GABAPENTIN 100 MG CAP PO SCH (22:00)
[2025-07-20] VITALS: BP 133/60
[2025-07-20] MEDS ORDERED: FOAM BANDAGE HEEL T ONE (06:15)
[2025-07-20 07:21] LABS: BASO # 0.1 10*3/uL (0.0-0.1); BASO % 1.0 % (0.0-1.0); EOS # 0.4 10*3/uL (0.0-0.4); EOS % 4.6 % (1.0-4.0); MEAN CELL VOLUME 78.4 fl (81.0-99.0); MEAN CORPUSCULAR HGB 23.8 pg (27.0-31.0); MEAN PLATELET VOLUME 9.0 fl (9.6-12.3); MONO # 1.2 10*3/uL (0.1-1.0); MONO % 13.0 % (3.0-9.0); NEUT # 5.1 10*3/uL (2.3-7.9); NEUT % 56.5 % (47.0-73.0); NUCLEATED RED BLOOD CELL 0.0 % (0.0-0.0); NUCLEATED RED BLOOD CELL 0.0 10*3/uL (0.0-0.0); PLATELET COUNT AUTOMATED 605 10*3/uL (130-400); RED CELL DISTRI WIDTH 19.1 % (0-14.5)
[2025-07-20 08:00] VITALS: BP 148/62
[2025-07-20 08:21] LABS: BUN 14 mg/dl (9-23)
[2025-07-20] MEDS ORDERED: Cholecalciferol 2,000 UNIT TABLET (50 MCG) PO SCH (10:00)
[2025-07-20] MEDS ORDERED: FOLIC ACID 1 MG TAB PO SCH (10:00)
[2025-07-20] MEDS ORDERED: FERROUS SULFATE 325 MG TAB PO SCH (10:35)
[2025-07-20 12:00] VITALS: BP 138/57
[2025-07-20] MEDS ORDERED: BUDESONIDE 0.5 MG AMP NEB PRN (12:10)
[2025-07-20] MEDS ORDERED: NA FERRIC GLUC CMPL/SUCROSE 62.5 MG/5 ML VIAL IV SCH (13:00)
[2025-07-20] MEDS ORDERED: Albuterol Sulf/Ipratropium 3 ML VIAL NEB PRN (13:10)
[2025-07-20 16:00] VITALS: BP 138/56
[2025-07-20 20:00] VITALS: BP 134/60
[2025-07-21] VITALS: BP 144/58
[2025-07-21 07:40] LABS: BASO # 0.1 10*3/uL (0.0-0.1); BASO % 1.3 % (0.0-1.0); EOS # 0.5 10*3/uL (0.0-0.4); EOS % 5.2 % (1.0-4.0); MEAN CELL VOLUME 77.2 fl (81.0-99.0); MEAN CORPUSCULAR HGB 23.6 pg (27.0-31.0); MEAN PLATELET VOLUME 9.0 fl (9.6-12.3); MONO # 1.2 10*3/uL (0.1-1.0); MONO % 11.7 % (3.0-9.0); NEUT # 5.6 10*3/uL (2.3-7.9); NEUT % 55.9 % (47.0-73.0); NUCLEATED RED BLOOD CELL 0.0 % (0.0-0.0); NUCLEATED RED BLOOD CELL 0.0 10*3/uL (0.0-0.0); PLATELET COUNT AUTOMATED 735 10*3/uL (130-400); RED CELL DISTRI WIDTH 19.5 % (0-14.5)
[2025-07-21 08:00] VITALS: BP 133/56
[2025-07-21 08:13] LABS: BUN 13 mg/dl (9-23)
[2025-07-21] MEDS ORDERED: NA FERRIC GLUC CMPL/SUCROSE 250 MG IV SCH (10:00)
[2025-07-21 12:00] VITALS: BP 122/54
[2025-07-21 16:00] VITALS: BP 122/59
[2025-07-21 20:00] VITALS: BP 136/59
[2025-07-22] VITALS: BP 128/49
[2025-07-22 05:29] LABS: BUN 16 mg/dl (9-23)
[2025-07-22 06:01] LABS: BASO # 0.1 10*3/uL (0.0-0.1); BASO % 1.4 % (0.0-1.0); EOS # 0.4 10*3/uL (0.0-0.4); EOS % 4.4 % (1.0-4.0); MEAN CELL VOLUME 78.0 fl (81.0-99.0); MEAN CORPUSCULAR HGB 24.0 pg (27.0-31.0); MEAN PLATELET VOLUME 9.4 fl (9.6-12.3); MONO # 1.3 10*3/uL (0.1-1.0); MONO % 13.6 % (3.0-9.0); NEUT # 5.4 10*3/uL (2.3-7.9); NEUT % 55.4 % (47.0-73.0); NUCLEATED RED BLOOD CELL 0.0 % (0.0-0.0); NUCLEATED RED BLOOD CELL 0.0 10*3/uL (0.0-0.0); PLATELET COUNT AUTOMATED 748 10*3/uL (130-400); RED CELL DISTRI WIDTH 19.8 % (0-14.5)
[2025-07-22 08:00] VITALS: BP 130/54
[2025-07-22] MEDS ORDERED: VIBRA-TAB100 MG PO (10:46)
[2025-07-22] MEDS ORDERED: VITAMIN D350 MCG PO (10:46)
[2025-07-22] MEDS ORDERED: NATURE'S BLEND F1 MG PO (10:46)
[2025-07-22] MEDS ORDERED: WARFARIN SOD2 MG PO (10:46)
== END 2025-07-22 12:20 | disposition home health service (06) | DRG 300 ==
LOC: ED 15:57 → 4E 17:54 → EDHOLD 17:54 → 4E 19:48
PROVIDERS: Internal Medicine; Physician Assistant; Student in an Organized Health Care Education/Training Program; ADMIT Internal Medicine; ATTEND Internal Medicine
DX: I82.441 Acute embolism and thrombosis of right tibial vein (principal); E87.20 Acidosis, unspecified; L03.115 Cellulitis of right lower limb; F10.90 Alcohol use, unspecified, uncomplicated; E11.51 Type 2 diabetes mellitus with diabetic peripheral angiopathy without gangrene; J44.89 Other specified chronic obstructive pulmonary disease; I10 Essential (primary) hypertension; F17.210 Nicotine dependence, cigarettes, uncomplicated; D72.821 Monocytosis (symptomatic); E87.8 Other disorders of electrolyte and fluid balance, not elsewhere classified; D75.839 Thrombocytosis, unspecified; Z86.711 Personal history of pulmonary embolism; Z79.899 Other long term (current) drug therapy; Z71.6 Tobacco abuse counseling; Z79.01 Long term (current) use of anticoagulants; Z79.2 Long term (current) use of antibiotics; Y90.0 Blood alcohol level of less than 20 mg/100 ml

== ENCOUNTER 2025-09-18 16:41 | Inpatient (IN) | payer MEDICARE ==
[~2025-09-18] VITALS: Ht 160 cm; Wt 71.2 kg
[~2025-09-18 16:41] MED LIST changes: +APAP325 MG PO; +BREYNA 160-4.10.3 GM IH; +GABAPENTIN100 M2 PO; +NATURE'S BLEND F1 MG PO; +SERTRALINE HYDR25 MG PO; +VIBRA-TAB100 MG PO; +WARFARIN SOD2 MG PO
[2025-09-18 16:46] VITALS: BP 165/72
[2025-09-18 17:06] LABS: BASO # 0.1 10*3/uL (0.0-0.1); BASO % 0.8 % (0.0-1.0); EOS # 0.2 10*3/uL (0.0-0.4); EOS % 1.7 % (1.0-4.0); MEAN CELL VOLUME 82.5 fl (81.0-99.0); MEAN CORPUSCULAR HGB 24.7 pg (27.0-31.0); MEAN PLATELET VOLUME 8.9 fl (9.6-12.3); MONO # 1.4 10*3/uL (0.1-1.0); MONO % 11.5 % (3.0-9.0); NEUT # 8.5 10*3/uL (2.3-7.9); NEUT % 70.8 % (47.0-73.0); NUCLEATED RED BLOOD CELL 0.0 % (0.0-0.0); NUCLEATED RED BLOOD CELL 0.0 10*3/uL (0.0-0.0); PLATELET COUNT AUTOMATED 972 10*3/uL (130-400); RED CELL DISTRI WIDTH 18.5 % (0-14.5)
[2025-09-18 17:25] LABS: BUN 16.0 mg/dl (9-23)
[2025-09-18 20:21] VITALS: BP 139/57
[2025-09-18] MEDS ORDERED: BISACODYL 5 MG TAB PO PRN (20:25)
[2025-09-18] MEDS ORDERED: ACETAMINOPHEN 325 MG TAB PO PRN (20:25)
[2025-09-18] MEDS ORDERED: Acetaminophen/Hydrocodone 5 MG/325 MG TABLET PO PRN (20:25)
[2025-09-18] MEDS ORDERED: DEXTROSE 50% 25 GM/50 ML VIAL IV PRN (20:50)
[2025-09-18 21:25] VITALS: BP 135/58
[2025-09-18] MEDS ORDERED: INSULIN LISPRO 1 UNIT/0.01 ML SQ SCH (22:00)
[2025-09-18] MEDS ORDERED: Albuterol Sulf/Ipratropium 3 ML VIAL NEB SCH (23:10)
[2025-09-19] VITALS: BP 116/51
[2025-09-19 06:44] LABS: BASO # 0.1 10*3/uL (0.0-0.1); BASO % 0.9 % (0.0-1.0); EOS # 0.3 10*3/uL (0.0-0.4); EOS % 3.1 % (1.0-4.0); MEAN CELL VOLUME 80.2 fl (81.0-99.0); MEAN CORPUSCULAR HGB 24.7 pg (27.0-31.0); MEAN PLATELET VOLUME 8.8 fl (9.6-12.3); MONO # 1.2 10*3/uL (0.1-1.0); MONO % 12.8 % (3.0-9.0); NEUT # 5.3 10*3/uL (2.3-7.9); NEUT % 54.1 % (47.0-73.0); NUCLEATED RED BLOOD CELL 0.0 % (0.0-0.0); NUCLEATED RED BLOOD CELL 0.0 10*3/uL (0.0-0.0); PLATELET COUNT AUTOMATED 806 10*3/uL (130-400); RED CELL DISTRI WIDTH 17.7 % (0-14.5)
[2025-09-19 06:58] LABS: ACT PARTIAL THROMBO TIME 63.6 SECONDS (20.0-32.1)
[2025-09-19 07:15] LABS: BUN 12 mg/dl (9-23); FREE T4 0.93 ng/dl (0.89-1.76); LDL CHOLESTEROL 67 mg/dL (9-159)
[2025-09-19 07:23] LABS: SGPT/ALT < 7 U/L (5-49)
[2025-09-19 08:00] VITALS: BP 130/58
[2025-09-19 08:08] LABS: VITAMIN D, 25-HYDROXY 30.3 ng/mL (30-100)
[2025-09-19] MEDS ORDERED: LISINOPRIL 5 MG TAB PO SCH (10:00)
[2025-09-19] MEDS ORDERED: GABAPENTIN 100 MG CAP PO SCH (10:00)
[2025-09-19 11:45] VITALS: BP 122/42
[2025-09-19] MEDS ORDERED: NA FERRIC GLUC CMPL/SUCROSE 62.5 MG/5 ML VIAL IV SCH (12:00)
[2025-09-19] MEDS ORDERED: ASPIRIN, CHEWABLE 81 MG TAB PO SCH (13:55)
[2025-09-19 16:00] VITALS: BP 108/48
[2025-09-19 20:00] VITALS: BP 107/45
[2025-09-20 00:04] VITALS: BP 106/50
[2025-09-20 06:29] LABS: BASO # 0.1 10*3/uL (0.0-0.1); BASO % 1.3 % (0.0-1.0); EOS # 0.4 10*3/uL (0.0-0.4); EOS % 4.1 % (1.0-4.0); MEAN CELL VOLUME 80.6 fl (81.0-99.0); MEAN CORPUSCULAR HGB 24.6 pg (27.0-31.0); MEAN PLATELET VOLUME 9.1 fl (9.6-12.3); MONO # 0.9 10*3/uL (0.1-1.0); MONO % 10.3 % (3.0-9.0); NEUT # 4.1 10*3/uL (2.3-7.9); NEUT % 47.8 % (47.0-73.0); NUCLEATED RED BLOOD CELL 0.0 % (0.0-0.0); NUCLEATED RED BLOOD CELL 0.0 10*3/uL (0.0-0.0); PLATELET COUNT AUTOMATED 921 10*3/uL (130-400); RED CELL DISTRI WIDTH 18.0 % (0-14.5)
[2025-09-20 06:38] LABS: BUN 15 mg/dl (9-23)
[2025-09-20] MEDS ORDERED: HEPARIN SODIUM 250 ML IV SCH (07:15)
[2025-09-20 08:00] VITALS: BP 127/45
[2025-09-20] MEDS ORDERED: NA FERRIC GLUC CMPL/SUCROSE 250 MG IV SCH (10:00)
[2025-09-20 12:00] VITALS: BP 108/46
[2025-09-20] MEDS ORDERED: ASPIRIN CHILDRE81 MG PO (12:47)
[2025-09-20] MEDS ORDERED: WARFARIN SODIUM1 MG PO (12:47)
== END 2025-09-20 17:22 | disposition home health service (06) | DRG 301 ==
LOC: ED 16:41 → 5E 18:48 → EDHOLD 18:48 → 5E 20:16
PROVIDERS: Student in an Organized Health Care Education/Training Program; ADMIT Internal Medicine; ATTEND Internal Medicine
DX: I82.432 Acute embolism and thrombosis of left popliteal vein (principal); Z15.89 Genetic susceptibility to other disease; K57.90 Diverticulosis of intestine, part unspecified, without perforation or abscess without bleeding; F41.9 Anxiety disorder, unspecified; R79.1 Abnormal coagulation profile; D75.839 Thrombocytosis, unspecified; D72.821 Monocytosis (symptomatic); I87.2 Venous insufficiency (chronic) (peripheral); J44.9 Chronic obstructive pulmonary disease, unspecified; E11.42 Type 2 diabetes mellitus with diabetic polyneuropathy; E11.65 Type 2 diabetes mellitus with hyperglycemia; I10 Essential (primary) hypertension; Z96.641 Presence of right artificial hip joint; I82.452 Acute embolism and thrombosis of left peroneal vein; F32.A Depression, unspecified; Z79.01 Long term (current) use of anticoagulants; Z79.899 Other long term (current) drug therapy; Z90.89 Acquired absence of other organs; Z86.711 Personal history of pulmonary embolism